=== PATIENT | male | born 1960 | race African-American/Black ===

== ENCOUNTER 2017-10-05 01:56 | Emergency (ER) | payer SELFPAY ==
[2017-10-05 02:18] VITALS: BMI 21.5
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
[2017-10-05] MEDS ORDERED: TETANUS AND DIPHTHERIA TOXOID 0.5 ML DISP.SYRIN IM ONE (02:58)
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
[2017-10-05 09:19] VITALS: BP 107/67; PULSE 90; TEMP 98.3
== END 2017-10-05 09:19 | disposition home or self-care (01) ==
LOC: JER 01:56
PROC: 3E0234Z Introduction of Serum, Toxoid and Vaccine into Muscle, Percutaneous Approach (ICD-10-PCS; principal; 2017-10-05)
PROC: 0HQFXZZ Repair Right Hand Skin, External Approach (ICD-10-PCS; 2017-10-05)
DX: S61.214A Laceration without foreign body of right ring finger without damage to nail, initial encounter (principal); S02.2XXA Fracture of nasal bones, initial encounter for closed fracture; F17.210 Nicotine dependence, cigarettes, uncomplicated; Y04.2XXA Assault by strike against or bumped into by another person, initial encounter; Y93.89 Activity, other specified; Y92.9 Unspecified place or not applicable
CPT/HCPCS: 70450-TC; 70480-TC; 99284-25

== ENCOUNTER 2024-12-22 01:20 | Emergency (ER) | payer OTHER ==
[2024-12-22 01:25] VITALS: BP 148/100; PULSE 82; RESP 17; TEMP 97.5; BMI 22.9
== END 2024-12-22 06:18 | disposition home or self-care (01) ==
LOC: JER 01:20
DX: F10.929 Alcohol use, unspecified with intoxication, unspecified (principal); Y90.9 Presence of alcohol in blood, level not specified; R05.9 Cough, unspecified
CPT/HCPCS: 71045-TC-FY; 99283-25